=== PATIENT | female | born 1990 | race African-American/Black ===

== ENCOUNTER 2016-11-15 10:13 | Emergency (ER) | payer MEDICAID ==
[~2016-11-15] VITALS: Ht 172.7 cm; Wt 83.0 kg
[2016-11-15 14:40] VITALS: BP 115/65
== END 2016-11-15 15:41 | disposition home or self-care (01) ==
LOC: ER 11:57
DX: J32.8 Other chronic sinusitis (principal); Z98.890 Other specified postprocedural states
CPT/HCPCS: 70486; 81025; 99284

== ENCOUNTER 2017-10-18 11:42 | Emergency (ER) | payer MEDICAID ==
[~2017-10-18] VITALS: Ht 172.7 cm; Wt 87.0 kg
[2017-10-18 11:53] VITALS: BP 104/60
== END 2017-10-18 13:23 | disposition home or self-care (01) ==
LOC: ER 12:53
DX: B36.9 Superficial mycosis, unspecified (principal); Z98.890 Other specified postprocedural states
CPT/HCPCS: 99283

== ENCOUNTER 2018-02-03 11:48 | Emergency (ER) | payer MEDICAID ==
[~2018-02-03] VITALS: Ht 172.7 cm; Wt 82.0 kg
[2018-02-03 12:05] VITALS: BP 115/64
== END 2018-02-03 13:56 | disposition home or self-care (01) ==
LOC: ER 13:50
DX: H10.13 Acute atopic conjunctivitis, bilateral (principal)
CPT/HCPCS: 99282; Z7610

== ENCOUNTER 2022-06-01 17:43 | Emergency (ER) | payer MEDICAID ==
[~2022-06-01] VITALS: Ht 172.7 cm; Wt 79.0 kg
[2022-06-01 17:57] VITALS: BP 116/62
[2022-06-01] MEDS ORDERED: DOXY-326 MT (23:29)
[2022-06-01] MEDS ORDERED: MUPI22OI2 TP (23:29)
== END 2022-06-01 23:39 | disposition home or self-care (01) ==
LOC: ER 17:43
DX: R21 Rash and other nonspecific skin eruption (principal); Z98.890 Other specified postprocedural states
CPT/HCPCS: 99283